=== PATIENT | female | born 1995 | race Caucasian/White ===

== ENCOUNTER 2019-09-17 00:31 | Emergency (ER) | payer SELFPAY ==
--- NOTE | 2019-09-17 00:55 | NUR ---
PATIENT CALLED TO BE TRIAGE , NO RESPONSE PATIENT LEFT WITHOUT BEING SEEN BY DR. LOREDO. NO FURTHER CARE PROVIDED FOR PATIENT.
--- NOTE | 2019-09-17 01:00 | NUR ---
CALLED FOR THRE SECOND TIME , NO RESONSE
--- NOTE | 2019-09-17 01:05 | NUR ---
CALLED FOR THE THIRD TIME NO RESPONSE
== END 2019-09-17 00:55 | disposition left against medical advice (07) ==
LOC: MED 00:31
DX: Z53.21 Procedure and treatment not carried out due to patient leaving prior to being seen by health care provider (principal)